=== PATIENT | male | born 1950 | race Caucasian/White ===

== ENCOUNTER → 2016-07-24 | Outpatient (CLI) | payer BC | LOC: RAD 08:37 | PROVIDERS: ATTEND Family Medicine | DX: R13.14 Dysphagia, pharyngoesophageal phase (principal); K21.9 Gastro-esophageal reflux disease without esophagitis | CPT/HCPCS: 74210 ==

== ENCOUNTER 2016-12-12 23:50 | Emergency (ER) | payer MEDICARE, OTHER ==
--- NOTE | 2016-12-13 00:51 | ER Document Report ---
ED General - General Chief Complaint: Laceration Stated Complaint: LACERATION HAND Time Seen by Provider: 12/13/16 00:49 Mode of Arrival: Ambulatory Information source: Patient Notes: This is a 66-year-old man who presents to the emergency room with a laceration to the left hand. Patient was working on his trailer at 6:30 PM when his hand hit the side of the trailer and he received a laceration. He did not realize the wound was that the pain came in later after. His last tetanus shot he says is less than 10 years ago. TRAVEL OUTSIDE OF THE [place] IN LAST 30 DAYS: No - HPI Onset: Just prior to arrival Onset/Duration: Sudden Quality of pain: Dull Severity: Moderate Pain Level: 2 Associated symptoms: denies: Chills, Fever, Shortness of breath Exacerbated by: Denies Relieved by: Denies Similar symptoms previously: No Recently seen / treated by doctor: No - Related Data Allergies/Adverse Reactions: Penicillins Allergy (Verified 12/13/16 00:05) Home Medications: Current Home Medications Aspirin [Aspirin 81 mg Chewable Tablet] 1 tab PO DAILY 12/13/16 [History] Atenolol [Atenolol] 1 tab PO DAILY 12/13/16 [History] Atorvastatin Calcium [Atorvastatin Calcium] 1 tab PO DAILY 12/13/16 [History] Lisinopril [Lisinopril] 1 tab PO DAILY 12/13/16 [History] Metformin HCl [Metformin HCl ER] 1 tab PO DAILY 12/13/16 [History] Omeprazole [Omeprazole] 1 tab PO DAILY 12/13/16 [History] Sertraline HCl [Sertraline HCl] 1 tab PO DAILY 12/13/16 [History] Trazodone HCl [Trazodone HCl] 1 tab PO DAILY 12/13/16 [History] Past Medical History - General Information source: Patient - Social History Smoking Status: Never Smoker Cigarette use (# per day): No Chew tobacco use (# tins/day): No Frequency of alcohol use: None Drug Abuse: None Lives with: Family Family History: None Patient has suicidal ideation: No Patient has homicidal ideation: No - Past Medical History Cardiac Medical History: Reports: Hx Hypertension Renal/ Medical History: Denies: Hx Peritoneal Dialysis Past Surgical History: Reports: Hx Orthopedic Surgery Review of Systems - Review of Systems Constitutional: denies: Chills, Fever EENT: No symptoms reported Musculoskeletal: See HPI Skin: See HPI Physical Exam - Vital signs Vitals: Temp Pulse Resp BP Pulse Ox 97.9 F 64 16 123/78 97 12/13/16 00:08 12/13/16 00:08 12/13/16 00:08 12/13/16 00:08 12/13/16 00:08 Notes: Physical exam: 66-year-old man, alert and oriented 3, no acute distress Plan: He has a laceration over the dorsal aspect of the hand over the second metatarsal. The wound does appear to go deep. His extensor tendons are intact. Sensory is intact. No obvious foreign body in the wound. He does have tenderness over the base of the proximal phalanx of the third digit. There is no obvious deformity. Course - Vital Signs Vital signs: Temp Pulse Resp BP Pulse Ox 97.9 F 64 16 123/78 97 12/13/16 00:08 12/13/16 00:08 12/13/16 00:08 12/13/16 00:08 12/13/16 00:08 Procedures - Laceration/Wound Repair Left Hand Time completed: 02:23 Wound length (cm): 3 Wound's Depth, Shape: Into muscle Laceration pre-procedure: Chloraprep applied, Shur-Clens applied Anesthetic type: 1% Lidocaine Volume Anesthetic (mLs): 6 Wound explored: Clean Irrigated w/ Saline (mLs): 1,000 Wound Debrided: Minimal Wound Repaired With: Sutures Suture Size/Type: 5:0, Nylon Number of Sutures: 5 Post-procedure wound care: Sterile dressing applied Post-procedure NV exam normal: Yes Complications: No Notes: 12/13/16 02:24 Wound was initially anesthetized with lidocaine. I then scrubbed the hand copiously with 2 surgical scrub brushes and copiously irrigated the wound in the setting. After inspection of the wound, I cleaned the wound with surgiclense and then irrigated the wound with a liter normal saline under high pressure. Again inspected the wound and did not find any foreign bodies. I used ChloraPrep to create a sterile field and then approximated the wound. Patient tolerated the procedure well. Discharge - Discharge Clinical Impression: Laceration to the left hand Condition: Stable Disposition: HOME, SELF-CARE Instructions: Oral Narcotic Medication ([facility]), Prophylactic Antibiotic ([facility]), Laceration Care ([facility]), Tetanus Immunization Given ([facility]) Additional Instructions: Recommendations: Remove the stitches after 7-10 days. If you are still in town, you can return to the ER in 7-10 days for suture removal. Take the antibiotics as prescribed. Return to the ER for any signs of infection: Redness, swelling, pussy discharge or fever. Take the pain medicine as needed.
[2016-12-13] MEDS ORDERED: LIDOCAINE 1% INJ-PF (10 MG/ML) 30 ML SDV INJ ONE (00:53)
--- NOTE | 2016-12-13 01:58 | RADIOLOGY REPORT (SQ) ---
EXAM DESCRIPTION: HAND LEFT 3 VIEWS COMPLETED DATE/TIME: 12/13/2016 1:35 am REASON FOR STUDY: left hand laceration COMPARISON: None. EXAM PARAMETERS: NUMBER OF VIEWS: Three views. TECHNIQUE: AP, lateral and oblique radiographic images acquired of the left hand. LIMITATIONS: None. FINDINGS: MINERALIZATION: Juxta-articular osteopenia. BONES: No acute fracture or dislocation. No worrisome bone lesions. Mild deformity of the left 5th metacarpus. Mild scattered osteoarthritis. 0.3 cm circular calcifications at the ulnocarpal joint. JOINTS: No effusions. SOFT TISSUES: No soft tissue swelling. No foreign body. Bandaging and known soft tissue laceration. OTHER: No other significant finding. IMPRESSION: No acute bone or joint defect. TECHNICAL DOCUMENTATION: JOB ID: [id number] All Rights Reserved
[2016-12-13] MEDS ORDERED: DIPH/PERTUSS(ACELL)/TETANUS VAC/PF 0.5 ML SYR (>=10YO) IM ONE (02:22)
[2016-12-13] MEDS ORDERED: HYDROCODONE/ACETAMINOPHEN 5-325 MG 6 TAB/DSPK PO PRN (02:27)
[2016-12-13 03:05] VITALS: BP 129/72
== END 2016-12-13 03:06 | disposition home or self-care (01) ==
LOC: ER 23:50
PROC: 0HQGXZZ Repair Left Hand Skin, External Approach (ICD-10-PCS; principal; 2016-12-12)
DX: S66.822A Laceration of other specified muscles, fascia and tendons at wrist and hand level, left hand, initial encounter (principal); S61.412A Laceration without foreign body of left hand, initial encounter; W22.09XA Striking against other stationary object, initial encounter; I10 Essential (primary) hypertension; Z88.0 Allergy status to penicillin
CPT/HCPCS: 12002; 99283; 90471; 73130; 90715; J3490; A9270